=== PATIENT | female | born 1995 | race Two or more races ===

== ENCOUNTER 2017-08-23 12:57 | Emergency (ER) | payer MEDICAID, OTHER ==
[~2017-08-23] VITALS: Ht 167.6 cm; Wt 113.4 kg
[2017-08-23 14:17] VITALS: BP 142/94
== END 2017-08-23 14:37 | disposition home or self-care (01) ==
LOC: EDBD 12:57 → ER 12:57
DX: S60.222A Contusion of left hand, initial encounter (principal); V49.3XXA Car occupant (driver) (passenger) injured in unspecified nontraffic accident, initial encounter; Y93.89 Activity, other specified; Y92.89 Other specified places as the place of occurrence of the external cause; Y99.8 Other external cause status
CPT/HCPCS: 73130